=== PATIENT | male | born 1955 | race American Indian/Alaskan Native ===

== ENCOUNTER 2016-08-03 22:03 | Emergency (ER) | payer SELFPAY ==
[2016-08-04] MEDS ORDERED: TYLENOL ONE (00:12)
[2016-08-04] MEDS ORDERED: TYLENOL PO ONE (00:16)
[2016-08-04 00:19] VITALS: BP 107/73
--- NOTE | 2016-08-04 01:02 | XRay Report ---
FINAL REPORT PROCEDURE: XR HAND 3 RT TECHNIQUE: RIGHT hand radiographs, AP, lateral, and oblique views. CPT 17585-GZ HISTORY: impact, Rt 5th, Swollen, Send for report COMPARISON: No prior studies are available for comparison. FINDINGS: Fracture (s) and/or Dislocation(s): None . Alignment: Normal . Joint space(s): Mild narrowing of the joint spaces. Soft tissues: Normal . Bone mineralization: Normal . Foreign bodies: None . IMPRESSION: No evidence of an acute fracture or dislocation. Mild arthritis.
--- NOTE | 2016-08-08 01:05 | ED Elopement Review ---
ED Pt Elopement review - Call Back decision Pt Call Back Decision: No action required
== END 2016-08-04 04:34 | disposition left against medical advice (07) ==
LOC: ED 22:03
DX: Z00.00 Encounter for general adult medical examination without abnormal findings (principal); Z53.21 Procedure and treatment not carried out due to patient leaving prior to being seen by health care provider